=== PATIENT | male | born 1990 | race Caucasian/White ===

== ENCOUNTER 2023-12-15 17:17 | Emergency (ER) | payer OTHER ==
[~2023-12-15] VITALS: Ht 180.3 cm; Wt 75.0 kg
[2023-12-15] MEDS ORDERED: ISOVUE-370 76% 100ML VIAL As Ordered ONE (18:25)
[2023-12-15 18:41] LABS: BASO # 0.1 10^3/uL (0.0-0.2); BASO % 1.1 % (0.0-1.0); EOS # 0.3 10^3/uL (0.0-0.5); EOS % 2.5 % (0.0-3.0); HEMATOCRIT 45.3 % (42.0-52.0); LYMPH # 2.5 10^3/uL (1.5-5.0); LYMPH % 23.8 % (24.0-44.0); MEAN CORPUSCULAR HEMOGLOBIN 28.5 pg (27.0-33.0); MEAN CORPUSCULAR HGB CONC 33.1 g/dl (32.0-36.5); MEAN CORPUSCULAR VOLUME 86.1 fl (80.0-96.0); MONO # 0.7 10^3/uL (0.0-0.8); MONO % 6.5 % (2.0-8.0); NEUTROPHILS % 65.7 % (36.0-66.0); PLATELET COUNT, AUTOMATED 284 10^3/uL (150-450); RED BLOOD COUNT 5.26 10^6/uL (4.30-6.10); WHITE BLOOD COUNT 10.7 10^3/uL (4.0-10.0)
[2023-12-15 20:26] VITALS: BP 128/78; TEMP 98.7; O2SAT 98
== END 2023-12-15 21:14 | disposition home or self-care (01) ==
LOC: M ED 17:17
DX: R10.12 Left upper quadrant pain (principal); M79.605 Pain in left leg; M54.9 Dorsalgia, unspecified; V49.40XA Driver injured in collision with unspecified motor vehicles in traffic accident, initial encounter; Y99.9 Unspecified external cause status; Y92.410 Unspecified street and highway as the place of occurrence of the external cause
CPT/HCPCS: 36415; 70450; 71260; 72125; 72128; 72131; 72170; 73552; 74177; 80047; 85025; 99284; Q9967